=== PATIENT | female | born 1985 | race Caucasian/White ===

== ENCOUNTER → 2016-07-22 | Outpatient (CLI) | payer BC | END | disposition home or self-care (01) | LOC: LABWHC1 09:28 | PROVIDERS: ATTEND Obstetrics & Gynecology | DX: O20.9 Hemorrhage in early pregnancy, unspecified (principal) | CPT/HCPCS: 36415; 84702 ==

== ENCOUNTER → 2016-07-24 | Outpatient (CLI) | payer BC | END | disposition home or self-care (01) | LOC: LABWHC1 09:39 | PROVIDERS: ATTEND Obstetrics & Gynecology | DX: O20.9 Hemorrhage in early pregnancy, unspecified (principal); Z3A.00 Weeks of gestation of pregnancy not specified | CPT/HCPCS: 36415; 84702 ==

== ENCOUNTER → 2016-07-26 | Outpatient (CLI) | payer BC | END | disposition home or self-care (01) | LOC: LABWHC1 08:30 | PROVIDERS: ATTEND Obstetrics & Gynecology | DX: Z34.80 Encounter for supervision of other normal pregnancy, unspecified trimester (principal); Z3A.00 Weeks of gestation of pregnancy not specified | CPT/HCPCS: 36415; 84702 ==

== ENCOUNTER → 2016-07-29 | Outpatient (CLI) | payer BC ==
--- NOTE | 2016-07-29 11:36 | US ---
EXAMINATION TYPE: US OB <=14 wks transvag DATE OF EXAM: 07/29/2016 11:14 AM COMPARISON: NONE CLINICAL HISTORY: O46.91 1st trimester bleeding. 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 Endometrium is measured 3 to 6 mm. No ges tational sac, yolk sac, or pole is seen. No free fluid is seen in pelvic cul-de-sac. Both ovaries are identified. No suspicious extraovarian adnexal mass is seen. IMPRESSION: Findings could reflect too early to visualize intrauterine or spontaneous but ecto pic is not excluded. Serial beta hCG and ultrasound follow-up is advised.
== END ==
LOC: RADUSWWP 10:52
PROVIDERS: ATTEND Obstetrics & Gynecology
DX: O46.91 Antepartum hemorrhage, unspecified, first trimester (principal); O02.81 Inappropriate change in quantitative human chorionic gonadotropin (hCG) in early pregnancy; Z3A.01 Less than 8 weeks gestation of pregnancy
CPT/HCPCS: 76801; 76817

== ENCOUNTER → 2017-05-06 | Outpatient (CLI) | payer BC ==
--- NOTE | 2017-05-06 17:12 | US ---
EXAMINATION TYPE: US OB anatomy transabd DATE OF EXAM: 05/06/2017 COMPARISON: NONE HISTORY: Large for dates O36.62X0 LGA TECHNIQUE: Transabdominal (TA) EXAM MEASUREMENTS: GESTATIONAL AGE / DATING Physician Established: (19 weeks/2 days) EDC: 09/28/17 Dates by LMP: (19 weeks/2 days) EDC: 09/28/17 Dates by First Scan: no prior scan Dates by Current Scan for: (21 weeks/5 days) EDC: 09/11/17 SURVEY IUP: Single PLACENTA: Anterior PREVIA: No previa GARIMA: 16.9 cm Normal CERVICAL LENGTH (transabdominal: norm > 3.0cm): 5.5 cm BIOMETRY PRESENTATION: Breech LIE: Longitudinal BPD: 5.3 cm 22 weeks / 1 days HC: 19.7 cm 22 weeks / 0 days AC: 15.9 cm 21 weeks / 1 days FL: 3.5 cm 21 weeks / 1 days ESTIMATED WEIGHT IN GRAMS: 403 grams ESTIMATED WEIGHT IN LBS/OZ: 0 lbs. 14 oz. WEIGHT PERCENTAGE BASED ON ESTABLISHED DATE: 98 % HC/AC: 1.24 Normal FL/AC: 22% Normal HEART RATE: 158 bpm RHYTHM: Normal ANATOMY SEEN (within normal limits): * Lateral Vent (< 1 cm) 0.8 cm * Cisterna Magna (< 1.1 cm) 0.4 cm * Nuchal Fold (< 0.6 cm) 0.4 cm * Cerebellum (varies with age) 2.0 cm Choroid Plexus (bilateral) Midline Falx Cavus Septi Pellucidi Four Chamber Heart - echogenic foci noted Outflow tracts: LVOT/RVOT Stomach Situs Nose / Lips Diaphragm Kidneys (bilateral) Bladder Cord Insert Three Vessel Cord Longitudinal Spine Transverse Spine Arms (bilateral) Legs (bilateral) Single viable IUP 21wks/5days with SINA of 09/11/17. Echogenic foci noted within four chamber heart IMPRESSION: Ultrasound gestational age is 21 weeks 5 days. I see no complicating process.
== END | disposition home or self-care (01) ==
LOC: RADUSWWP 15:58
PROVIDERS: ATTEND Obstetrics & Gynecology
DX: O36.62X0 Maternal care for excessive fetal growth, second trimester, not applicable or unspecified (principal); Z3A.00 Weeks of gestation of pregnancy not specified
CPT/HCPCS: 76811

== ENCOUNTER → 2017-06-19 | Outpatient (CLI) | payer BC ==
[2017-06-19 10:57] LABS: HCT 35.2 % (34.0-46.0); HGB 11.8 gm/dL (11.4-16.0); MCHC 33.6 g/dL (31.0-37.0); MCV 92.3 fL (80.0-100.0); Mean Platelet Volume 8.4; Platelet Count 218 k/uL (150-450); RBC 3.82 m/uL (3.80-5.40); RDW 13.9 % (11.5-15.5); WBC 8.7 k/uL (3.8-10.6)
== END | disposition home or self-care (01) ==
LOC: LABWHC1 09:17
PROVIDERS: ATTEND Obstetrics & Gynecology
DX: Z34.82 Encounter for supervision of other normal pregnancy, second trimester (principal); Z3A.00 Weeks of gestation of pregnancy not specified
CPT/HCPCS: 36415; 82950; 85027

== ENCOUNTER 2017-09-01 16:28 | Observation (INO) | payer BC ==
--- NOTE | 2017-09-01 17:14 | P.HPOB ---
History of Present Illness H&P Date: 09/01/17 Chief Complaint: Gestational hypertension. This patient is a pleasant 32-year-old 3 para 1 female estimated date of confinement 09/28/2017 estimated gestational age 36 and one sevenths weeks who presented to my office this afternoon for routine visit. Blood pressure in the office was 140/92. Patient's blood pressures normally run from 110-120 occasionally in the 140 over 70s to 80s. Patient is feeling well without signs of preeclampsia. She denies headache, epigastric pain. She does have 1+ edema which she's had for a couple weeks. Patient's was complicated by isolated echogenic focus and she did see maternal medicine for this. At that time she had a normal AFP and maternity 21. Patient was noted to have statistically short long bones on maternal medicine evaluation. Patient's been followed for nonstress testing for this reasoning. Most recent ultrasound did show macrosomia of 7 lbs. 11 oz. Patient is scheduled for repeat at 39 weeks. Blood pressures done here in labor and delivery showed be 130-140 over 80s to 92. She is now being admitted for observation and serial blood pressures Review of Systems Genitourinary: Reports Menstruation: Reports amenorrhea Past Medical History Past Medical History: No Reported History History of Any Multi-Drug Resistant Organisms: None Reported Past Surgical History: Section Past Anesthesia/Blood Transfusion Reactions: No Reported Reaction Past Psychological History: No Psychological Hx Reported Smoking Status: Never smoker Past Alcohol Use History: None Reported Past Drug Use History: None Reported Medications and Allergies Allergies Allergy/AdvReac Type Severity Reaction Status Date / Time amoxicillin trihydrate Allergy Dyspnea Verified 05/02/14 16:29 [From Augmentin] potassium clavulanate Allergy Dyspnea Verified 05/02/14 16:29 [From Augmentin] Sulfa (Sulfonamide Allergy Rash/Hives Verified 05/02/14 16:29 Antibiotics) Exam - Vital Signs Vital signs: Intake and Output 09/01/17 09/01/17 09/01/17 06:59 14:59 22:59 Other: Weight 109.769 kg - OBG Physical Exam Abdomen: bowel sounds normal, no diffuse tenderness, no bruit present, no guarding noted, no hepatomegaly, no splenomegaly, no mass Uterus: enlarged (Fundal height today is 39 cm) Results blood work shows she is B positive, rubella immune, RPR nonreactive, hepatitis B was negative, group B strep was negative, Glucola was normal, quad screen testing was negative, maternity 21 was normal 46 XY, ultrasounds at [facility] showed a echogenic focus however otherwise normal other than "statistically short long bones". Assessment and Plan Assessment: This is a pleasant 32-year-old 3 para 1 female 36 and one sevenths weeks gestation with mild blood pressure elevations consistent with gestational hypertension. Lab evaluation for preeclampsia is pending at this time. Plan is to admit for serial blood pressures and observation. If her blood work is normal and her blood pressures remain mildly elevated and we'll continue to watch closely until 37 weeks at which time she will require delivery. I've discussed this in detail with the patient she understands the need for admission for observation and close surveillance. (1) Gestational hypertension Current Visit: Yes Status: Acute Code(s): O13.9 - GESTATIONAL HTN W/O SIGNIFICANT PROTEINURIA, UNSP TRIMESTER SNOMED Code(s): 89377771 (2) Previous delivery affecting Current Visit: Yes Status: Acute Code(s): O34.219 - MATERNAL CARE FOR UNSP TYPE SCAR FROM PREVIOUS DEL SNOMED Code(s): 200812338
[2017-09-01 17:35] VITALS: RESP 16; BMI 40.2
[2017-09-01 17:35] LABS: Basophils % (A) 0 %; Eosinophils # (A) 0.1 k/uL (0-0.7); Eosinophils % (A) 1 %; HGB 12.5 gm/dL (11.4-16.0); Lymphocytes % (A) 26 %; MCH 30.1 pg (25.0-35.0); MCHC 33.8 g/dL (31.0-37.0); MCV 88.8 fL (80.0-100.0); Mean Platelet Volume 9.2; Monocytes # (A) 0.5 k/uL (0-1.0); Monocytes % (A) 7 %; Neutrophils # (A) 4.8 k/uL (1.3-7.7); Neutrophils % (A) 63 %; Platelet Count 171 k/uL (150-450); RBC 4.17 m/uL (3.80-5.40); RDW 13.8 % (11.5-15.5); WBC 7.6 k/uL (3.8-10.6)
[2017-09-01 17:39] LABS: ALT 22 U/L (9-52); AST 22 U/L (14-36); Blood Urea Nitrogen 12 mg/dL (7-17); LDH 436 U/L (313-618); Uric Acid 5.2 mg/dL (3.7-7.4)
[2017-09-01 18:26] LABS: Amorphous Sediment,Urine Occasional /hpf; Appearance,Urine Turbid (Clear); Bilirubin,Urine Negative (Negative); Blood,Urine Negative (Negative); Color,Urine Yellow; Glucose,Urine (UA) Negative (Negative); Ketones,Urine Negative (Negative); Leukocyte Esterase,Urine Negative (Negative); Mucus,Urine Rare /hpf; Nitrite,Urine Negative (Negative); PH, Urine 7.5 (5.0-8.0); Protein,Urine Trace (Negative); Specific Gravity,Urine 1.016 (1.001-1.035); Squamous Epithelial Cell,Urine 1 /hpf (0-4); Urobilinogen,Urine <2.0 mg/dL (<2.0); WBC,Urine 10 /hpf (0-5)
[2017-09-02 04:11] VITALS: BP 118/66; PULSE 90; TEMP 98
--- NOTE | 2017-09-02 06:15 | P.PN ---
Progress Note - Text Progress Note Date: 09/02/17 Hospital day #2. Patient is 36-2/7 weeks gestation. Blood pressures overnight were 110s to 120s over 60s to 70s. Patient is feeling well without complaints. Preeclampsia labs were normal. Nonstress testing is reactive. My impression at this time is she is 36 weeks gestation with mild gestational hypertension that is resolved at this time with bedrest. Plan is to send her home off work. I'll see her back in 2 days at the office. Blood pressures remain normal we' ll continue to watch however she has elevations beyond 37 weeks and we'll plan for delivery.
--- NOTE | 2017-09-02 06:19 | P.DS ---
Providers Date of admission: 09/01/17 17:00 Expected date of discharge: 09/02/17 Attending physician: Roby Ghosh Primary care physician: Stated None - Discharge Diagnosis(es) (1) Gestational hypertension Current Visit: Yes Status: Acute (2) Previous delivery affecting Current Visit: Yes Status: Acute Hospital Course: Please see dictated H&P for intimate details of this patient's admission. Brief summary this pleasant 32-year-old 3 para 1 female 36 and one sevenths weeks gestation admitted to labor and delivery for gestational hypertension found in the office. Patient is admitted had preeclampsia labs which were normal. Nonstress testing was normal. Patient was watched overnight blood pressures did come down to normal. At this time plan is to discharge home on modified bedrest follow up with me in 2 days. I did discuss signs and symptoms of preeclampsia and indications to call if worries earlier. Patient Condition at Discharge: Good Plan - Discharge Summary New Discharge Prescriptions: No Action No Known Home Medications [No Known Home Medications] Discharge Medication List No Known Home Medications [No Known Home Medications] 09/01/17 [History] Follow up Appointment(s)/Referral(s): Roby Ghosh MD [STAFF PHYSICIAN] - 09/04/17 8:30 am Patient Instructions/Handouts: Preeclampsia (GEN) Activity/Diet/Wound Care/Special Instructions: Please see me in the office on Thursday at 8:30. Please call if any signs or symptoms of preeclampsia as discussed. Discharge Disposition: HOME SELF-CARE
== END 2017-09-02 06:51 | disposition home or self-care (01) ==
LOC: FBPOP 16:28 → 4FBP 17:00
PROVIDERS: ADMIT Obstetrics & Gynecology; ATTEND Obstetrics & Gynecology
DX: O13.3 Gestational [pregnancy-induced] hypertension without significant proteinuria, third trimester (principal); O34.219 Maternal care for unspecified type scar from previous cesarean delivery; O12.13 Gestational proteinuria, third trimester; Z3A.36 36 weeks gestation of pregnancy; Z88.0 Allergy status to penicillin; Z88.2 Allergy status to sulfonamides
CPT/HCPCS: 82565; 83615; 84450; 84460; 84520; 84550; 85025; 81001; G0378 ×2

== ENCOUNTER 2017-09-15 22:45 | Outpatient (CLI) | payer BC ==
[2017-09-15 23:17] LABS: Appearance,Urine Clear (Clear); Bilirubin,Urine Negative (Negative); Blood,Urine Negative (Negative); Color,Urine Colorless; Glucose,Urine (UA) Negative (Negative); Ketones,Urine Negative (Negative); Leukocyte Esterase,Urine Negative (Negative); Nitrite,Urine Negative (Negative); PH, Urine 6.5 (5.0-8.0); Protein,Urine Negative (Negative); Specific Gravity,Urine 1.003 (1.001-1.035); Urobilinogen,Urine <2.0 mg/dL (<2.0)
[2017-09-15] MEDS ORDERED: diphenhydrAMINE 25 MG CAP PO STA (23:30)
[2017-09-16 00:15] LABS: Basophils % (A) 0 %; Eosinophils # (A) 0.1 k/uL (0-0.7); Eosinophils % (A) 1 %; HCT 34.4 % (34.0-46.0); HGB 11.6 gm/dL (11.4-16.0); Lymphocytes # (A) 1.7 k/uL (1.0-4.8); Lymphocytes % (A) 23 %; MCH 30.5 pg (25.0-35.0); MCHC 33.8 g/dL (31.0-37.0); MCV 90.3 fL (80.0-100.0); Mean Platelet Volume 10.2; Monocytes # (A) 0.5 k/uL (0-1.0); Monocytes % (A) 7 %; Neutrophils # (A) 4.9 k/uL (1.3-7.7); Neutrophils % (A) 66 %; Platelet Count 153 k/uL (150-450); RBC 3.81 m/uL (3.80-5.40); WBC 7.5 k/uL (3.8-10.6)
[2017-09-16 01:22] LABS: ALT 21 U/L (9-52); AST 25 U/L (14-36); Blood Urea Nitrogen 17 mg/dL (7-17); LDH 556 U/L (313-618); Uric Acid 5.5 mg/dL (3.7-7.4)
[2017-09-16 02:30] VITALS: BP 134/73; PULSE 84; RESP 16; TEMP 97.3
--- NOTE | 2017-09-16 20:40 | P.MSEPDOC ---
Presenting Problems - Arrival Data Date of Arrival on Unit: 09/15/17 Time of Arrival on Unit: 22:50 Mode of Transport: Ambulatory - Complaint OB-Reason for Admission/Chief Complaint: PIH Comment: headache, nosebleed, elevated pressures at home Medical History - Information : 3 Para: 1 Term: 1 : 0 Abortions: Spontaneous or Elective: 1 Number of Living Children: 1 - Gestational Age Gestational Age by SINA (wks/days): 38 Weeks and 2 Days - History Complications: Prior Review of Systems - Review of Systems Constitutional: No problems Breast: No problems ENT: No problems Cardiovascular: No problems Respiratory: No problems Gastrointestinal: No problems Genitourinary: No problems Musculoskeletal: No problems Neurological: No problems Skin: No problems Vital Signs - Temperature Temperature: 97.3 F Temperature Source: Temporal Artery Scan - Pulse Right Brachial Pulse Rate: 84 Pulse Assessment Method: Automatic Cuff - Respirations Respiratory Rate: 16 Oxygen Delivery Method: Room Air O2 Sat by Pulse Oximetry: 97 - Blood Pressure Right Arm Sitting Blood Pressure: 134/73 Blood Pressure Mean: 93 Blood Pressure Source: Automatic Cuff Medical Screen Scoring (Pre) - Cervical Exam Dilation: Exam Deferred - Uterine Contractions Frequency: > 5 minutes apart = 1 Duration: > 40 seconds = 2 Intensity: N/A - Maternal Vital Signs Maternal Temperature: N/A Maternal Blood Pressure: N/A - Pain Assessment Pain Location and Character: Head Pain Scale Used: Numeric (1 - 10) Pain Intensity: 5 Pain Description: *Acute, Aching Pain Frequency: Constant Pain Duration: 4 Pain Duration Units: Hours Pain Behavior: None Exhibited Pharmacological Interventions: PRN Medication Non-Pharmacological Interventions: Darkened Room - Maternal Trauma Maternal Trauma: N/A - Assessment Baseline FHR: 130 Heart Rate - NICHD Category: Category I (Normal) = 0 NST: Reactive Position: N/A Station: N/A - Total Score Total Score (Pre): 3 - Level of Risk Level of Risk: Low (0-5) Physician Notification (Pre) - Physician Notified Physician Notified Date: 09/15/17 Physician Notified Time: 23:25 Spoke With: Rebecca Sun Order Received: Yes ([facility] labwork, benadryl) Medical Screen Scoring (Post) - Cervical Exam Dilation: Exam Deferred - Uterine Contractions Frequency: > 5 minutes apart = 1 - Maternal Vital Signs Maternal Blood Pressure: N/A - Total Score Total Score (Post): 1 Physician Notification (Post) - Physician Notified Physician Notified Date: 09/16/17 Physician Notified Time: 01:54 Spoke With: Rebecca Sun Order Received: Yes (discharge with instruction) - Notification Comment Comment: PIH workup labs wnl, blood pressures remain stable, appt scheduled for Thursday. Disposition - Disposition OB Disposition: Discharge to home, Written follow up instructions reviewed Discharge Date: 09/16/17 Discharge Time: 02:00 I agree with the RN Medical Screening Exam: Yes Risk & Benefit of care provided described in d/c instruction: Yes Diagnosis: HEADACHE
== END 2017-09-16 02:00 | disposition home or self-care (01) ==
LOC: FBPOP 22:45
PROVIDERS: ATTEND Obstetrics & Gynecology
DX: O13.3 Gestational [pregnancy-induced] hypertension without significant proteinuria, third trimester (principal); Z3A.38 38 weeks gestation of pregnancy
CPT/HCPCS: 59025; 81003; 82565; 83615; 84450; 84460; 84520; 84550; 85025; 99215

== ENCOUNTER 2017-09-25 05:43 | Inpatient (IN) | payer BC ==
[2017-09-23 15:40] VITALS: BMI 39.9
--- NOTE | 2017-09-24 06:37 | P.HPOB ---
History of Present Illness H&P Date: 09/24/17 Chief Complaint: Repeat section. This patient is a pleasant 32-year-old 3 para 1 female estimated date of confinement 09/28/2017 estimated gestational age 39-4/7 weeks who presents to labor and delivery for elective repeat section. Patient's is complicated by mild gestational hypertension that occurred at approximately 36 weeks. Patient has been followed closely with biweekly nonstress tests and blood pressures. Blood pressures have remained normal on bedrest. Patient also was referred to maternal- medicine secondary to an isolated echogenic focus. Patient that time had a normal AFP and maternity 21 ( 46 XY). Patient's ultrasounds however did show a "statistically short" long bones. Maternal medicine did not feel this was a significant finding. Patient requested repeat section for delivery. Review of Systems Gastrointestinal: Reports heartburn Genitourinary: Reports Menstruation: Reports amenorrhea Past Medical History Past Medical History: Hypertension Additional Past Medical History / Comment(s): gestational hypertension-dr nam, ""induced asthma with respiratory infections" History of Any Multi-Drug Resistant Organisms: None Reported Past Surgical History: Section Past Anesthesia/Blood Transfusion Reactions: No Reported Reaction Past Psychological History: No Psychological Hx Reported Smoking Status: Never smoker Past Alcohol Use History: None Reported Past Drug Use History: None Reported - Past Family History Sister(s) Family Medical History: Cancer Mother Family Medical History: Pulmonary Embolus Additional Family Medical History / Comment(s): PE from a fall Medications and Allergies Home Medications Medication Instructions Recorded Confirmed Type Pnv No.95/Ferrous Fum/Folic AC 1 tab PO DAILY 09/15/17 09/23/17 History [ Multivitamin Tablet] Allergies Allergy/AdvReac Type Severity Reaction Status Date / Time amoxicillin trihydrate Allergy Dyspnea Verified 09/23/17 15:32 [From Augmentin] diclofenac Allergy face Verified 09/23/17 15:32 turned purple, face swelling potassium clavulanate Allergy Dyspnea Verified 09/23/17 15:32 [From Augmentin] Sulfa (Sulfonamide Allergy Rash/Hives Verified 09/23/17 15:32 Antibiotics) Exam - Vital Signs Vital signs: Intake and Output 09/23/17 09/23/17 09/24/17 14:59 22:59 06:59 Other: Weight 112.037 kg - OBG Physical Exam Abdomen: bowel sounds normal, no diffuse tenderness, no bruit present, no guarding noted, no hepatomegaly, no splenomegaly, no mass Vulva: both: normal Vagina: normal moisture, no discharge Cervix: no lesion (Cervix in the office was closed.), no discharge Uterus: enlarged (Fundal height is enlarged) Results blood work shows she is B positive, rubella immune, RPR is nonreactive , hepatitis B is negative, Glucola was normal, AFP was negative, Materni 21 was normal, level III ultrasounds as above. Assessment and Plan Assessment: This is a pleasant 32-year-old 3 para 1 female 39-4/7 weeks gestation admitted for elective repeat section. is been complicated by gestational hypertension which has been normalized on bed rest. Plan is repeat low transverse section. Patient and I have discussed the surgery and risks including risks of infection, bleeding, possible injury bowel , bladder, vessels, and/or other organs. Patient also understands the risk of DVT and pulmonary embolism. All the patient's questions have been answered and a written consent is obtained. (1) Previous delivery affecting Status: Acute Code(s): O34.219 - MATERNAL CARE FOR UNSP TYPE SCAR FROM PREVIOUS DEL SNOMED Code(s): 085794984 (2) Gestational hypertension Status: Acute Code(s): O13.9 - GESTATIONAL HTN W/O SIGNIFICANT PROTEINURIA, UNSP TRIMESTER SNOMED Code(s): 69231954
[2017-09-25] MEDS ORDERED: CITRIC ACID-SODIUM CITRATE 15 ML CUP PO ONE (05:57)
[2017-09-25] MEDS ORDERED: LACTATED RINGERS 1,000 ML IV SCH (05:57)
[2017-09-25] MEDS ORDERED: LACTATED RINGERS 1,000 ML IV ONE (05:57)
[2017-09-25 06:29] LABS: HCT 36.2 % (34.0-46.0); HGB 12.2 gm/dL (11.4-16.0); MCH 30.4 pg (25.0-35.0); MCHC 33.7 g/dL (31.0-37.0); MCV 90.1 fL (80.0-100.0); Mean Platelet Volume 9.6; Platelet Count 146 k/uL (150-450); RBC 4.02 m/uL (3.80-5.40); RDW 14.7 % (11.5-15.5); WBC 6.4 k/uL (3.8-10.6)
[2017-09-25 06:54] LABS: Eosinophils # (M) 0.06 k/uL (0-0.7); Large Platelets Present; Lymphocytes # (M) 1.92 k/uL (1.0-4.8); Monocytes # (M) 0.13 k/uL (0-1.0); Neutrophils # (M) 4.29 k/uL (1.3-7.7); Neutrophils % (M) 67 %; Nucleated Red Blood Cells 0 /100 WBC (0-0); Total Cells Counted 100
[2017-09-25] MEDS ORDERED: CLINDAMYCIN 900 MG in DEXTROSE 5% IN WATER 50 ML IVPB SCH ×2 (07:00)
[2017-09-25] MEDS ORDERED: NALBUPHINE 10 MG/ML AMPUL ONE (07:50)
[2017-09-25] MEDS ORDERED: PHENYLEPHRINE-0.9% NACL SYG 1 MG/10 ML SYRINGE ONE (07:50)
[2017-09-25] MEDS ORDERED: ePHEDrine SULFATE/0.9% NACL/PF 50 MG/5 ML SYRINGE IV ONE (07:50)
[2017-09-25] MEDS ORDERED: MORPHINE SULFATE (PF) 0.3 MG/0.3 ML SYR ONE (07:50)
[2017-09-25] MEDS ORDERED: OXYTOCIN 10 UNIT/ML 1 ML VIAL ONE (07:50)
[2017-09-25] MEDS ORDERED: ONDANSETRON 4 MG/2 ML VIAL ONE (07:50)
[2017-09-25] MEDS ORDERED: NALOXONE 0.4 MG/ML 1 ML VIAL IV PRN ×2 (08:43→09:59)
[2017-09-25] MEDS ORDERED: ONDANSETRON 4 MG/2 ML VIAL IVP PRN (08:43)
[2017-09-25] MEDS ORDERED: ACETAMINOPHEN IV (For NPO) 1,000 MG in EMPTY BAG 1 BAG IVPB ONE (08:43)
[2017-09-25] MEDS ORDERED: OXYTOCIN 20 UNITS/1000 ML NS 1,000 ML IV SCH (08:43)
[2017-09-25] MEDS ORDERED: ZOLPIDEM 5 MG TAB PO PRN (08:43)
[2017-09-25] MEDS ORDERED: IBUPROFEN 600 MG TAB PO PRN (08:43)
[2017-09-25] MEDS ORDERED: SIMETHICONE 80 MG CHEWABLE PO PRN (08:43)
[2017-09-25] MEDS ORDERED: diphenhydrAMINE 25 MG CAP PO PRN (08:43)
[2017-09-25] MEDS ORDERED: METOCLOPRAMIDE 5 MG/ML 2 ML VIAL IVP PRN (08:43)
[2017-09-25] MEDS ORDERED: ACETAMINOPHEN TAB 325 MG TAB PO PRN (08:43)
[2017-09-25] MEDS ORDERED: diphenhydrAMINE 50 MG/ML 1 ML VIAL IVP PRN (08:43)
--- NOTE | 2017-09-25 08:45 | P.OP ---
Date of Procedure: 09/25/17 Preoperative Diagnosis: #1: 39-4/7 weeks . #2: Previous section desires repeat. #3: Mild gestational hypertension Postoperative Diagnosis: Same Procedure(s) Performed: Repeat low transverse section Anesthesia: spinal Surgeon: Roby Ghosh Medical Technician Assistant #1: Ang Henderson Estimated Blood Loss (ml): 800 Pathology: other (Placenta) Condition: stable Disposition: floor Indications for Procedure: Please see dictated H&P for intimate details of this patient's admission. In brief summary this is a pleasant 32-year-old 3 para 1 female 39-4/7 weeks gestation who is admitted to labor and delivery for repeat section. Patient understands this surgery and risks including risks of infection, bleeding, possible injury bowel, bladder, vessels, and/or other organs. All the patient's questions are answered and a written consent is obtained. Operative Findings: This is a vigorous viable male infant Apgars are 9 and 10 delivery time is 0818 hours. Description of Procedure: This patient is a 29 had a Medina catheter placed to straight drain. She is subsequently taken to the operating room where she sat up and spinal anesthetic is administered without incident. With an adequate level of anesthesia she has abdominal prep and drape. Scalpels then taken and a Pfannenstiel skin incision is made. A second scalpel is taken down to the fascia and the fascia scored with a knife. Fascial incision extended bilaterally using the Jain scissors. Fascia is then dissected sharply off the rectus muscles. Rectus muscles are and the peritoneum identified and entered sharply. Peritoneal incision extended superior and inferior without difficulty. Bladder blade is then placed. Bladder peritoneum was taken sharply off the lower uterine segment. Scalpels and taken low transverse uterine incision is then made. I enter the uterine cavity bluntly and there is loss of a copious amount of mild meconium-stained fluid. This incision is extended bluntly. Infant's head is then guided through the incision with fundal pressure we have delivery of the 's head. at this point does have a spontaneous cry and respiration. Have delivery the rest this 's body was vigorous viable male Apgars are 9 and 10 delivery time is 0818 hours. weight is 9 lbs. 10 oz. or 4360 g periods after delivery of the infant the umbilical cords doubly clamped and cut appears to be trivascular. The placenta is then manually extracted intact. Uterus is then externalized and the uterine incision is then closed using 0 Vicryl running locked fashion in 2 layers. Excellent hemostasis is noted. Bladder peritoneum was then closed using a 3-0 Vicryl. Excess fluid is removed from the abdomen and pelvis. Uterus tubes and ovaries appear normal for term gestation. Uterus placed back into the abdomen. Parietal peritoneum was then closed using 0 Vicryl running fashion. Rectus muscles reapproximated in 0 Vicryl interrupted fashion. Fascial incision is then closed using 0 PDS in running fashion. Fascial incision is intact and hemostatic. Subcutaneous tissues and closed using a 3-0 Vicryl. Skin is and closed using bushra. Sterile dressing is applied. All counts are correct 3. There are no complications. and mother taken the birthing suite in satisfactory condition.
[2017-09-25] MEDS: SENNOSIDES-DOCUSATE SODIUM 1 EACH TAB PO SCH ×2 (08:56→19:23)
[2017-09-25] MEDS ORDERED: NALBUPHINE 10 MG/ML AMPUL IV PRN (09:59)
[2017-09-25] MEDS ORDERED: KETOROLAC 30 MG/ML 1 ML VIAL IVP PRN (09:59)
[2017-09-25] MEDS: LACTATED RINGERS 1,000 ML IV SCH ×2 (14:33→19:17)
--- NOTE | 2017-09-26 07:22 | P.PN ---
Progress Note - Text Progress Note Date: 09/26/17 Postoperative day 1 status post section under spinal anesthesia and intrathecal Duramorph for postoperative analgesia.The patient is doing well. There are no anesthesia related complications. Further management as per the patient primary team.
[2017-09-26 07:54] LABS: Basophils % (A) 0 %; Eosinophils # (A) 0.1 k/uL (0-0.7); Eosinophils % (A) 1 %; HCT 34.4 % (34.0-46.0); HGB 11.7 gm/dL (11.4-16.0); Lymphocytes # (A) 1.1 k/uL (1.0-4.8); Lymphocytes % (A) 11 %; MCH 30.8 pg (25.0-35.0); MCV 90.6 fL (80.0-100.0); Mean Platelet Volume 9.6; Monocytes # (A) 0.6 k/uL (0-1.0); Monocytes % (A) 6 %; Neutrophils # (A) 8.2 k/uL (1.3-7.7); Neutrophils % (A) 81 %; Platelet Count 144 k/uL (150-450); RDW 15.1 % (11.5-15.5); WBC 10.2 k/uL (3.8-10.6)
[2017-09-26] MEDS: SENNOSIDES-DOCUSATE SODIUM 1 EACH TAB PO SCH ×2 (08:04→20:00)
--- NOTE | 2017-09-26 11:58 | P.PNOBGPC ---
Subjective - Subjective Principal diagnosis: Status post repeat section postoperative day #1 Interval history: Patient is doing well. She is ablating. She is passing some flatus. She denies any bowel movement yet. Lochia is decreasing. Pain is well-controlled. Patient reports: Reports appetite normal, Reports voiding normally, Reports pain well controlled, Reports ambulating normally Amidon: doing well Objective - Vital Signs Latest vital signs: Vital Signs Temp Pulse Resp BP Pulse Ox 09/26/17 08:00 98.3 F 108 H 17 143/81 96 09/26/17 06:00 16 96 09/26/17 03:47 98.7 F 85 16 140/72 09/26/17 02:00 14 97 09/26/17 00:00 98.8 F 78 16 103/59 98 09/25/17 22:00 16 98 09/25/17 19:57 97.5 F L 71 16 123/68 96 09/25/17 16:00 97.5 F L 71 18 115/74 97 09/25/17 14:00 18 09/25/17 12:25 97.7 F 58 L 18 118/68 09/25/17 12:00 97.7 F 58 L 18 118/68 Intake and Output 09/25/17 09/26/17 09/26/17 22:59 06:59 14:59 Intake Total 600 Output Total 2200 600 Balance -2200 0 Intake: Other 600 Output: Urine 2200 600 Uretheral (Medina) 900 Other: Voiding Method Toilet # Voids 1 1 - Exam Extremities: Present: normal. Absent: tenderness Abdomen: Present: normal appearance, soft (Positive bowel sounds 4). Absent: distention, tenderness Incision: Present: normal, dry, intact. Absent: erythematous Uterus: Present: normal, firm. Absent: tenderness - Labs Labs: Abnormal Lab Results - Last 24 Hours (Table) 09/26/17 Range/Units 07:23 Plt Count 144 L (150-450) k/uL Neutrophils # 8.2 H (1.3-7.7) k/uL Assessment and Plan Assessment: Impression is status post repeat section postoperative day #1. Plan: Plan is to continue with postoperative care. May shower. Encouraged ambulation.
[2017-09-26 16:04] VITALS: RESP 16
--- NOTE | 2017-09-27 07:41 | P.DS ---
Providers Date of admission: 09/25/17 05:43 Expected date of discharge: 09/27/17 Attending physician: Roby Ghosh Primary care physician: Stated None Hospital Course: This is a 32-year-old female 3 para 1 at 39-4/7 weeks who presented for scheduled repeat section. She underwent a repeat low transverse section and delivered a viable male on 09/25/2017 with scores of 9 at 1 minute and 10 at 5 minutes and weight of 9 lbs. 10 oz. Her postoperative course has been uncomplicated. Her lochia is decreasing. Pain is well-controlled with ibuprofen. She is passing flatus but no bowel movement yet. She is breast-feeding without difficulty. Vital signs are stable. Abdomen is soft with positive bowel sounds 4. Incision is clean dry and intact with bushra in place. Extremities show negative Homans. Impression is status post repeat section postoperative day #2. Plan is to discharge home today. Routine postoperative and instructions are given. She is advised to follow up with Dr. Ghosh in the office in approximately 1 week for a postoperative check and in 6 weeks for a check. She is advised to call the office if she has any further questions or concerns prior to her appointment time. She will be given a prescription for ibuprofen. Procedures: Repeat low transverse section Patient Condition at Discharge: Stable Plan - Discharge Summary Discharge Rx Participant: Yes New Discharge Prescriptions: No Action Pnv No.95/Ferrous Fum/Folic AC [ Multivitamin Tablet] 1 tab PO DAILY Discharge Medication List Pnv No.95/Ferrous Fum/Folic AC [ Multivitamin Tablet] 1 tab PO DAILY [History] Follow up Appointment(s)/Referral(s): Roby Ghosh MD [STAFF PHYSICIAN] - 1 Week Activity/Diet/Wound Care/Special Instructions: Instructions 1. Do not begin any exercise program for 3 weeks. 2. Do not resume sexual relations for 3 weeks or longer if uncomfortable. 3. You may take tub baths or showers at any time. 4. You may use tampons if desired after 3 weeks. 5. Keep the area of episiotomy (stitches) clean and dry. 6. If you are not nursing, wear a good fitting, supportive bra during the day and limit fluid intake for at least 1 week to prevent breast engorgement. 7. Call the office, [phone], within the next week to make appointment for your 6 week checkup if it has not already been made. 8. Report any of the following occurrences to the doctor promptly: a. Heavy, excessive bleeding b. Chills, fever c. Burning or frequency of urination d. Pain or redness and breasts if nursing e. Increasing pain or swelling in episiotomy (stitches). In addition to the above instructions, the following additional should be followed: 1. No heavy lifting or straining (exercising) until after 6 week checkup. 2. Keep abdominal incision clean and dry: You may wear a dressing if more comfortable. 3. Make office appointment for 10 days after going home or as instructed by her doctor. Discharge Disposition: HOME SELF-CARE
[2017-09-27] MEDS: SENNOSIDES-DOCUSATE SODIUM 1 EACH TAB PO SCH (07:53)
[2017-09-27 07:56] VITALS: BP 125/76; PULSE 90; TEMP 98.4
== END 2017-09-27 10:55 | disposition home or self-care (01) | DRG 766 ==
LOC: 4FBP 05:43
PROVIDERS: ADMIT Obstetrics & Gynecology; ATTEND Obstetrics & Gynecology
PROC: 10D00Z1 Extraction of Products of Conception, Low, Open Approach (ICD-10-PCS; principal; 2017-09-25 07:50)
DX: O34.211 Maternal care for low transverse scar from previous cesarean delivery (principal); Z37.0 Single live birth; O13.4 Gestational [pregnancy-induced] hypertension without significant proteinuria, complicating childbirth; Z3A.39 39 weeks gestation of pregnancy; Z80.9 Family history of malignant neoplasm, unspecified
CPT/HCPCS: 85025; 86850; 86900; 86901; 88307

== ENCOUNTER → 2019-03-29 | Outpatient (CLI) | payer BC ==
--- NOTE | 2019-03-30 11:50 | MM ---
Reason for exam: screening (asymptomatic). Baseline mammogram. History: Family history of breast cancer in sister at age 37. Taking hormonal contraceptives beginning at age 34. Physical Findings: Nurse did not find any significant physical abnormalities on exam. MG Screening Mammo w CAD Bilateral CC and MLO view(s) were taken. The breast tissue is heterogeneously dense. This may lower the sensitivity of mammography. No significant changes when compared with prior studies. ASSESSMENT: Benign, BI-RAD 2 RECOMMENDATION: Routine screening mammogram of both breasts at age 39.
== END | disposition home or self-care (01) ==
LOC: RADMAMWWP 15:05
PROVIDERS: ATTEND Obstetrics & Gynecology
DX: Z12.31 Encounter for screening mammogram for malignant neoplasm of breast (principal)
CPT/HCPCS: 77067

== ENCOUNTER → 2019-06-10 | Outpatient (CLI) | payer BC ==
--- NOTE | 2019-06-12 17:45 | US ---
EXAMINATION TYPE: US transvaginal DATE OF EXAM: 06/10/2019 COMPARISON: NONE CLINICAL HISTORY: 34-year-old female N92.0 Menorrhagia. TECHNIQUE: Transvaginal (TV). Date of LMP: 06/10/2019 FINDINGS: EXAM MEASUREMENTS: Uterus: 9.7 X 5.1 X 6.2 cm Endometrial Stripe: 0.7 cm Right Ovary: 3.2 X 2.2 X 1.9 cm Left Ovary: 3.2 X 2.2 X 1.9 cm 1. Uterus: Anteverted, small cervical nabothian cysts. Suggestion of a scar line in the an terior lower uterine segment. 2. Endometrium: wnl 3. Right Ovary: wnl with follicular change. 4. Left Ovary: Dominant follicle measures 1.3 x 1.2 x 1.1 cm 5. Bilateral Adnexa: wnl 6. Posterior cul-de-sac: no free fluid IMPRESSION: Small cervical nabothian cysts. scar suggested. Endometrial stripe measuring 7 mm. Follicul ar change in the ovaries.
== END | disposition home or self-care (01) ==
LOC: RADUSWWP 16:11
PROVIDERS: ATTEND Obstetrics & Gynecology
DX: N88.8 Other specified noninflammatory disorders of cervix uteri (principal)
CPT/HCPCS: 76830

== ENCOUNTER 2019-09-30 06:03 | Day surgery (SDC) | payer BC ==
[2019-09-28 16:14] VITALS: BMI 34.9
--- NOTE | 2019-09-29 16:37 | P.HPOB ---
History of Present Illness H&P Date: 09/29/19 Chief Complaint: Menorrhagia This patient is a pleasant 34-year-old 3 para 2 female whose had ongoing problems with menorrhagia. Patient had a vaginal ultrasound which showed a normal uterus and normal endometrium. She tried oral contraceptives without relief. Patient's partner has had a vasectomy and she is requesting NovaSure endometrial ablation for treatment. Review of Systems Genitourinary: Reports as per HPI Menstruation: Reports menses 1-7 days, Reports period heavy Past Medical History Past Medical History: Asthma Additional Past Medical History / Comment(s): ""induced asthma with respiratory infections". endometriosis with excessive bleeding and increase frequency of cycles History of Any Multi-Drug Resistant Organisms: None Reported Past Surgical History: Section Additional Past Surgical History / Comment(s): 2-C/S Past Anesthesia/Blood Transfusion Reactions: No Reported Reaction Additional Past Anesthesia/Blood Transfusion Reaction / Comment(s): has never had general anesthesic. has had spinal and epidural for c/s. sensitive to medication Past Psychological History: No Psychological Hx Reported Smoking Status: Never smoker Past Alcohol Use History: None Reported Past Drug Use History: None Reported - Past Family History Father Family Medical History: No Reported History Sister(s) Family Medical History: Cancer Mother Family Medical History: Pulmonary Embolus Additional Family Medical History / Comment(s): PE from a fall Medications and Allergies Home Medications Medication Instructions Recorded Confirmed Type Albuterol Inhaler [Ventolin Hfa 1 puff INHALATION DAILY PRN 09/28/19 09/28/19 History Inhaler] Allergies Allergy/AdvReac Type Severity Reaction Status Date / Time amoxicillin trihydrate Allergy Dyspnea Verified 09/25/17 05:57 [From Augmentin] cefdinir Allergy Dyspnea Verified 09/28/19 16:07 diclofenac Allergy face Verified 09/25/17 05:57 turned purple, face swelling potassium clavulanate Allergy Dyspnea Verified 09/25/17 05:57 [From Augmentin] Sulfa (Sulfonamide Allergy Rash/Hives Verified 09/25/17 05:57 Antibiotics) Exam - OBG Physical Exam Abdomen: bowel sounds normal, no diffuse tenderness, no bruit present, no guarding noted, no hepatomegaly, no splenomegaly, no mass Vulva: both: normal Vagina: normal moisture Cervix: no lesion, no discharge Uterus: normal size, normal contour Results Transvaginal ultrasound June 10 showed a normal size uterus with endometrium of 7 mm. Assessment and Plan Assessment: This is a pleasant 34-year-old 3 para 2 female with persistent menorrhagia despite hormonal therapy who is presenting for trial of endometrial ablation for treatment. Plan is hysteroscopy, dilation and curettage, and NovaSure endometrial ablation. Patient I have discussed the surgery and risks including risks of infection, bleeding, possible uterine perforation and/or thermal injury. All the patient's questions are answered and a written consent is obtained. (1) Menorrhagia Status: Acute Code(s): N92.0 - EXCESSIVE AND FREQUENT MENSTRUATION WITH REGULAR CYCLE SNOMED Code(s): 930577792
[~2019-09-30 06:03] MED LIST: DEXAMETHASONE SOD PHOSPHATE 10 MG/ML 1 ML VIAL IV ONE; LACTATED RINGERS 1,000 ML IV SCH; LIDOCAINE 1% (10MG/ML) FOR IV START INTRADERMA PRN; ONDANSETRON 4 MG/2 ML VIAL IVP ONE; Pre Op ABX Message 1 EACH MISC MISCELLANE ONE
[2019-09-30 06:24] VITALS: TEMP 96.9
[2019-09-30] MEDS ORDERED: HYDROmorphone (PF) 1 MG/ML ONE (06:57)
[2019-09-30] MEDS ORDERED: fentaNYL (PF) 50 MCG/ML 2 ML AMP ONE (06:57)
[2019-09-30] MEDS ORDERED: PROPOFOL 10 MG/ML 20 ML VIAL IV ONE (06:57)
[2019-09-30] MEDS ORDERED: LIDOCAINE 1% INJ 10MG/ML (20 ML MDV) ONE (06:57)
[2019-09-30] MEDS ORDERED: MIDAZOLAM 2 MG/2 ML VIAL ONE (06:57)
[2019-09-30] MEDS ORDERED: LACTATED RINGERS 1,000 ML IV ONE (07:36)
--- NOTE | 2019-09-30 07:47 | P.OP ---
Date of Procedure: 09/30/19 Preoperative Diagnosis: Menorrhagia Postoperative Diagnosis: Same Procedure(s) Performed: #1: Hysteroscopy. #2: Dilation and curettage. #3: NovaSure endometrial ablation Anesthesia: other (LMA) Surgeon: Roby Ghosh Estimated Blood Loss (ml): 10 Urine output (ml): 75 Pathology: other (Uterine curettings) Condition: stable Disposition: PACU Indications for Procedure: Please see dictated H&P for intimate details of this patient's admission. Brief summary this pleasant 34-year-old woman with long-standing menorrhagia failed oral contraceptives is now presenting for endometrial ablation. Patient understands this surgery and risks including risks of infection, bleeding, possible uterine perforation, and/or thermal injury. All the patient's questions are answered written consent is obtained. Operative Findings: This patient normal appearing endometrial cavity Description of Procedure: This patient is taken to the operating room where she is laid in the supine position. She subsequently undergoes general anesthesia without incident. With an adequate level of anesthesia she's placed in dorsal lithotomy position. She has a vaginal perineal prep and drape. Examination under anesthesia shows a mid position uterus of normal size. The bladder is drained at this time for 75 mL of clear urine. Weighted speculum placed in the posterior vagina and the anterior lip of cervix was grabbed with an Allis clamp. The uterus is then sounded to 9 cm. Gentle dilation is done of the endocervix to allow the hysteroscope into the uterine cavity. Hysteroscopy is performed and the uterine cavity appears normal. Hysteroscope was then removed. NovaSure device is then opened and seated in place. Multiple attempts are done however the device does not appear to pass the cavity integrity test and I am certain that we do not have a perforation therefore we replaced the hand device and the secondhand device does work properly. It is set at a length of 6.0 cm and a width of 3.8 cm. The device passes the cavity integrity test is then enabled for 110 seconds at 125 W. With this done the NovaSure device is removed appears to be intact. Hysteroscopy is performed again and the cavity appears normal ablated up to the endocervix. This point the procedure is ended the Allis clamp and weighted speculum removed. All counts are correct 3. There are no complications. Patient is awakened from anesthesia and taken recovery room satisfactory condition.
[2019-09-30 11:07] VITALS: BP 115/71; PULSE 45; RESP 18
== END 2019-09-30 11:09 | disposition home or self-care (01) ==
LOC: OR 06:03
PROVIDERS: ATTEND Obstetrics & Gynecology
DX: N92.0 Excessive and frequent menstruation with regular cycle (principal); J45.909 Unspecified asthma, uncomplicated; Z88.2 Allergy status to sulfonamides; Z88.0 Allergy status to penicillin; Z88.1 Allergy status to other antibiotic agents; Z88.6 Allergy status to analgesic agent; Z98.891 History of uterine scar from previous surgery; Z80.9 Family history of malignant neoplasm, unspecified; Z82.49 Family history of ischemic heart disease and other diseases of the circulatory system
CPT/HCPCS: 81025; 58563; J2250; J1100; J2405; J2001; J3010; J1170; J2704; 88305

== ENCOUNTER → 2021-08-08 | Outpatient (CLI) | payer BC ==
--- NOTE | 2021-08-12 11:47 | MM ---
Reason for exam: screening (asymptomatic). Last mammogram was performed 2 years and 4 months ago. History: Patient is postmenopausal. Family history of breast cancer in sister at age 37. Took hormonal contraceptives beginning at age 34. Physical Findings: A clinical breast exam by your physician is recommended on an annual basis and results should be correlated with mammographic findings. MG Screening Mammo w CAD Bilateral CC and MLO view(s) were taken. Prior study comparison: March 29, 2019, bilateral MG screening mammo w CAD. There are scattered fibroglandular densities. Focal asymmetry increased without discrete distortion or mass. ASSESSMENT: Probably benign, BI-RAD 3 RECOMMENDATION: Follow-up diagnostic mammogram of the left breast in 6 months.
== END | disposition home or self-care (01) ==
LOC: RADMAMWWP 16:34
PROVIDERS: ATTEND Obstetrics & Gynecology
DX: Z12.31 Encounter for screening mammogram for malignant neoplasm of breast (principal); Z78.0 Asymptomatic menopausal state; Z80.3 Family history of malignant neoplasm of breast
CPT/HCPCS: 77067

== ENCOUNTER → 2022-02-06 | Outpatient (CLI) | payer BC ==
--- NOTE | 2022-02-06 15:02 | MM ---
Reason for Exam: Follow-up at short interval from prior study. Last screening mammogram was performed 6 month(s) ago. Patient History: Menarche at age 12. First Full-Term at age 29. Late child-bearing (after 29). Postmenopausal. Hormonal Contraceptives, starting at age 34. Sister had breast cancer, age 37. Risk Values: Jazmyne 5 year model risk: 0.9%. NCI Lifetime model risk: 19.4%. Prior Study Comparison: 03/29/2019 Bilateral Screening Mammogram, [facility]. 08/08/2021 Bilateral Screening Mammogram, [facility]. Tissue Density: Left: The breast tissue is heterogeneously dense. This may lower the sensitivity of mammography. Findings: Analyzed By CAD. Benign-appearing left axillary lymph nodes are redemonstrated. No suspicious new mass or distortion in the left breast. Overall Assessment: Negative, BI-RAD 1 Management: Screening Mammogram of both breasts in 6 months. Back on annual schedule. Results were given to the patient verbally at the time of exam. Electronically signed and approved by: Tahir Adamson M.D.
== END | disposition home or self-care (01) ==
LOC: RADMAMWWP 14:42
PROVIDERS: ATTEND Obstetrics & Gynecology
DX: R92.8 Other abnormal and inconclusive findings on diagnostic imaging of breast (principal); Z78.0 Asymptomatic menopausal state; Z80.3 Family history of malignant neoplasm of breast
CPT/HCPCS: 77061; 77065

== ENCOUNTER → 2022-08-07 | Outpatient (CLI) | payer BC ==
--- NOTE | 2022-08-08 09:36 | MM ---
Reason for Exam: Screening (asymptomatic). Last screening mammogram was performed 12 month(s) ago. Patient History: Menarche at age 12. First Full-Term at age 29. Late child-bearing (after 29). Postmenopausal. Hormonal Contraceptives, starting at age 34. Sister had breast cancer, age 37. Risk Values: Jazmyne 5 year model risk: 0.9%. NCI Lifetime model risk: 19.4%. Prior Study Comparison: 03/29/2019 Bilateral Screening Mammogram, [facility]. 08/08/2021 Bilateral Screening Mammogram, [facility]. 02/06/2022 Left MG 3D diag mammo w/cad LT, [facility]. Tissue Density: The breast tissue is extremely dense which could obscure a lesion on mammography. Findings: Analyzed By CAD. There is no suspicious group of microcalcifications or new suspicious mass in either breast. Overall Assessment: Negative, BI-RAD 1 Management: Screening Mammogram of both breasts in 1 year. Some Advise bilateral breast ultrasound surveillance in patients with background dense tissue. A clinical breast exam by your physician is recommended on an annual basis and results should be correlated with mammographic findings. Electronically signed and approved by: Tahir Adamson M.D.
== END | disposition home or self-care (01) ==
LOC: RADMAMWWP 16:12
PROVIDERS: ATTEND Obstetrics & Gynecology
DX: Z12.31 Encounter for screening mammogram for malignant neoplasm of breast (principal); Z80.3 Family history of malignant neoplasm of breast; Z78.0 Asymptomatic menopausal state
CPT/HCPCS: 77063; 77067